=== PATIENT | female | born 1995 | race Caucasian/White ===

== ENCOUNTER 2022-08-03 23:49 | Emergency (ER) | payer OTHER, SELFPAY ==
[2022-08-04] VITALS: BP 150/90; PULSE 92; PULSE 97; RESP 20; TEMP 36.6; O2SAT 98; BMI 33.7
--- NOTE | 2022-08-04 00:12 | PC.NURSE ---
pt states that the chest pain radiates to the L side of her neck
[2022-08-04 00:13] VITALS: BP 114/62; PULSE 97; RESP 20; TEMP 36.6; O2SAT 98
--- NOTE | 2022-08-04 00:25 | PC.NURSE ---
EKG to follow
--- NOTE | 2022-08-04 00:37 | ECG_ITS ---
Test Reason : CHEST PAIN Blood Pressure : / mmHG Vent. Rate : 065 BPM Atrial Rate : 065 BPM P-R Int : 138 ms QRS Dur : 088 ms QT Int : 402 ms P-R-T Axes : 011 033 018 degrees QTc Int : 418 ms Normal sinus rhythm with sinus arrhythmia Normal ECG No previous ECGs available Referred By: Isael Gupta Electronically Signed By:CORIN KOO
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
[2022-08-04] MEDS: LORazepam 1 MG TABLET PO (01:34)
--- NOTE | 2022-08-04 01:45 | PC.NURSE ---
Discharge instructions given/explained, pt ambulates safely/independently, no respiratory distress, pt is able to speak in full sentences, no sob, all of pt's questions answered, pt medicated on discharge, boyfriend at bedside and will be driving pt home
== END 2022-08-04 01:44 | disposition home or self-care (01) ==
PROVIDERS: Emergency Provider Emergency Medicine Emergency Medical Services
DX: F41.9 Anxiety disorder, unspecified (principal); R06.4 Hyperventilation
CPT/HCPCS: 93005; 99283; 99285